=== PATIENT | male | born 1940 | race Caucasian/White ===

== ENCOUNTER 2017-02-13 17:50 | Emergency (ER) | payer MEDICARE, BC ==
[2017-02-13] MEDS ORDERED: Ondansetron 4 MG Tab.DIS PO ONE (18:21)
--- NOTE | 2017-02-13 18:26 | EDM.PDOC ---
ED HPI GENERAL MEDICAL PROBLEM - General Chief Complaint: Abdominal Pain Stated Complaint: NOT FEELING WELL Time Seen by Provider: 02/13/17 18:15 Source of Information: Reports: Patient, Old Records History Limitations: Reports: Other (poor historian) - History of Present Illness INITIAL COMMENTS - FREE TEXT/NARRATIVE: 76 yo male presents with a couple day hx of abdominal distention and mild discomfort. No fever. Mild nausea without vomiting. Normal BM's. No hx of abdominal surgery or liver dz. Does have a hx of a "stomach infection" tx'd with pills. Appetite is reduced. Denies current alcohol use. Onset: Gradual, Other Onset Date: 02/11/17 Duration: Day(s): Location: Reports: Abdomen Quality: Reports: Ache Severity: Mild Improves with: Reports: None Worsens with: Reports: None Context: Reports: Other (unknown) Associated Symptoms: Reports: Loss of Appetite, Nausea/Vomiting (no vomiting). Denies: Chest Pain, Fever/Chills, Rash Treatments ALGOLOGIST: Reports: Other (see below) (none) Abdominal Pain Score (Numeric/FACES): 2 - Related Data Allergies Allergy/AdvReac Type Severity Reaction Status Date / Time Penicillins Allergy Rash Verified 01/11/14 12:52 Home Meds: Home Meds Aspirin 81 mg PO DAILY 01/11/14 [History] atorvaSTATin [Lipitor] 40 mg PO BEDTIME 01/11/14 [History] glipiZIDE [Glipizide ER] 10 mg PO DAILY 01/11/14 [History] metFORMIN [Glucophage] 1,000 mg PO BID 01/11/14 [History] Liraglutide [Victoza] 1.2 mg SQ BEDTIME 01/13/14 [History] amLODIPine [Norvasc] 10 mg PO DAILY 01/13/14 [History] Lisinopril 20 mg PO DAILY 05/10/14 [History] Nitroglycerin 0.4 mg SL DAILY PRN #40 tab.subl 12/28/14 [Rx] traMADol [Ultram] 50 mg PO Q6H #20 tab 12/28/14 [Rx] Clopidogrel [Plavix] 75 mg PO DAILY 04/30/15 [History] Tamsulosin HCl [Flomax] 0.4 mg PO DAILY #30 cap.er.24h 06/10/15 [Rx] Famotidine 20 mg PO DAILY #15 tablet 02/13/17 [Rx] Ondansetron [Zofran ODT] 4 mg PO Q6H PRN #10 tab.dis 02/13/17 [Rx] Past Medical History Cardiovascular History: Reports: High Cholesterol, Hypertension Other Musculoskeletal History: Rib fx 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 Denies: Fever, Diaphoresis Respiratory: Reports: No Symptoms Cardiovascular: Reports: No Symptoms Endocrine: Reports: No Symptoms GI/Abdominal: Reports: Abdominal Pain, Decreased Appetite, Distension, Nausea. Denies: Black Stool, Bloody Stool, Constipation, Diarrhea, Flatus, Hematemesis, Hematochezia, Melena, Mucous in Stool, Stool Incontinence, Vomiting : Reports: No Symptoms Musculoskeletal: Reports: No Symptoms Skin: Reports: No Symptoms Neurological: Reports: No Symptoms ED EXAM, GI/ABD - Physical Exam Exam: See Below Exam Limited By: No Limitations General Appearance: Alert, WD/WN, No Apparent Distress Eyes: Bilateral: Normal Appearance Ears: Normal External Exam, Normal Canal, Hearing Grossly Normal Nose: Normal Inspection, Normal Mucosa, No Blood Throat/Mouth: Normal Inspection, Normal Lips, Normal Teeth, Normal Oropharynx, Normal Voice, No Airway Compromise Head: Atraumatic, Normocephalic Neck: Normal Inspection, Supple, Non-Tender Respiratory/Chest: No Respiratory Distress, Lungs Clear, Normal Breath Sounds, No Accessory Muscle Use Cardiovascular: Regular Rate, Rhythm GI/Abdominal: Normal Bowel Sounds, Soft, Non-Tender, Tenderness (mild, diffuse....worse in epigastrium), Distention (? new vs. chronic, no dullness to percussion to suggest distention if from air. ). No: Hypoactive Bowel Sounds, Hyperactive Bowel Sounds, McBurney's Sign, Beckwith's Sign (Male) Exam: No Hernia Extremities: Normal Inspection, Normal Range of Motion, Non-Tender Neurological: Alert, Oriented, CN II-XII Intact, Normal Cognition, No Motor/ Sensory Deficits Psychiatric: Normal Affect, Normal Mood Skin Exam: Warm, Dry, Intact, Normal Color, No Rash Lymphatic: No Adenopathy Course - Vital Signs Text/Narrative:: Zofran ODT 4 mg SL, lactated ringers 1000 ml IV, famotidine 20 mg po Single view abdominal [id number] for increased stool or abnormal gas pattern. Last Recorded V/S: Last Vital Signs Temp 36.8 C 02/13/17 18:07 Pulse 70 02/13/17 19:15 Resp 16 02/13/17 19:15 BP 155/78 H 02/13/17 19:15 Pulse Ox 98 02/13/17 19:15 - Orders/Labs/Meds Orders: Active Orders 24 hr Category Date Time Status Abdomen 1V Flat [CR] Stat Exams 02/13/17 18:22 Taken Labs: Laboratory Tests 02/13/17 02/13/17 Range/Units 18:25 18:25 WBC 5.8 (4.5-12.0) X10-3/uL RBC 4.92 (4.30-5.75) x10(6)uL Hgb 14.2 (11.5-15.5) g/dL Hct 43.2 (30.0-51.3) % MCV 87.8 (80-96) fL MCH 28.8 (27.7-33.6) pg MCHC 32.8 (32.2-35.4) g/dL RDW 12.5 (11.5-15.5) % Plt Count 163 (125-369) X10(3)uL Sodium 140 (135-145) mmol/L Potassium 4.2 (3.5-5.3) mmol/L Chloride 105 (100-110) mmol/L Carbon Dioxide 27 (23-29) mmol/L BUN 29 H (8-23) mg/dL Creatinine 1.2 (0.6-1.3) mg/dL Est Cr Clr Drug Dosing 50.49 mL/min Estimated GFR (MDRD) 59 L (>60) BUN/Creatinine Ratio 24.2 H (9-20) Glucose 164 H (80-116) mg/dL Calcium 9.3 (8.6-10.2) mg/dL Total Bilirubin 0.6 (0.1-1.3) mg/dL AST 27 D (5-27) IU/L ALT 34 H D (14-26) IU/L Alkaline Phosphatase 101 (56-112) IU/L Total Protein 7.7 (6.0-8.0) g/dL Albumin 4.1 (3.2-4.6) g/dL Globulin 3.6 g/dL Albumin/Globulin Ratio 1.1 Amylase 163 H (28-100) U/L Meds: Medications Discontinued Medications Generic Name Dose Route Start Last Admin Trade Name Freq PRN Reason Stop Dose Admin Famotidine 20 mg 02/13/17 19:02 02/13/17 19:12 Pepcid PO 02/13/17 19:03 20 mg ONETIME ONE Administration Lactated Ringer's 1,000 mls @ 1,000 mls/hr 02/13/17 18:52 02/13/17 19:12 Ringers, Lactated IV 02/13/17 19:51 1,000 mls/hr BOLUS ONE Administration Ondansetron HCl 4 mg 02/13/17 18:21 02/13/17 18:49 Zofran Odt PO 02/13/17 18:22 4 mg ONETIME ONE Administration Simethicone 160 mg 02/13/17 18:50 02/13/17 20:22 Simethicone PO 02/13/17 18:51 160 mg NOW STA Administration Simethicone Confirm 02/13/17 20:15 02/13/17 20:25 Simethicone Administered 02/13/17 20:16 Not Given Dose 160 mg .ROUTE .STK-MED ONE Departure - Departure Time of Disposition: 20:37 Disposition: Home, Self-Care 01 Condition: Fair Clinical Impression: Elevated amylase Gastritis Qualifiers: Gastritis type: unspecified gastritis Chronicity: acute Gastritis bleeding: without bleeding Qualified Code(s): K29.00 - Acute gastritis without bleeding - Discharge Information Prescriptions: Famotidine 20 mg PO DAILY #15 tablet Ondansetron [Zofran ODT] 4 mg PO Q6H PRN #10 tab.dis PRN Reason: Nausea Referrals: Sahil Wade MD [Primary Care Provider] - Forms: ED Department Discharge Care Plan Goals: Take famotidine every evening. Take Zofran every 6 hrs as needed for nausea. Take acetaminophen as directed on the bottle for pain relief as needed. Clear liquid diet today and tomorrow. Recheck in the clinic tomorrow, return to the ER if unable to get into the clinic tomorrow. Return a stool specimen tomorrow for testing. Avoid carbonated beverages, ibuprofen, or Aleve. - My Orders Last 24 Hours: My Active Orders 02/13/17 18:22 Abdomen 1V Flat [CR] Stat - Assessment/Plan Last 24 Hours: My Active Orders 02/13/17 18:22 Abdomen 1V Flat [CR] Stat
[2017-02-13] MEDS ORDERED: Simethicone 80 MG Tab.Chew PO STA (18:50)
[2017-02-13] MEDS ORDERED: Lactated Ringers 1,000 ML IV ONE (18:52)
[2017-02-13] MEDS ORDERED: Famotidine 20 MG Tab PO ONE (19:02)
[2017-02-13] MEDS ORDERED: Simethicone 80 MG Tab.Chew ONE (20:15)
[2017-02-13 20:36] VITALS: BP 167/68
--- NOTE | 2017-02-14 11:54 | CR ---
INDICATION: Abdominal pain, distention. ABDOMEN: Two supine views of the abdomen were obtained 02/13/2017 and revealed a mass in the pelvis compatible with a moderately distended urinary bladder. Dextroconvex scoliosis of the lumbar spine is noted of mild to moderate degree, with hypertrophic degenerative changes and disk disease in the lumbar spine. The pattern of gas and feces is grossly nonspecific. No upright view is obtained. No definite organomegaly or mass lesions were seen. No distention of the bowel is seen. IMPRESSION: Nonspecific abdomen. MTDD
== END 2017-02-13 20:45 | disposition home or self-care (01) ==
LOC: FB.ED 17:50
DX: K29.00 Acute gastritis without bleeding (principal); R79.89 Other specified abnormal findings of blood chemistry; E78.00 Pure hypercholesterolemia, unspecified; I10 Essential (primary) hypertension; Z88.0 Allergy status to penicillin; Z79.82 Long term (current) use of aspirin; Z87.891 Personal history of nicotine dependence
CPT/HCPCS: 36415; 74000; 80053; 82150; 85027; 96365; 99283; A9270; J7120

== ENCOUNTER 2021-05-17 17:25 | Emergency (ER) | payer MEDICARE, BC ==
[2021-05-17] MEDS ORDERED: Sodium Chloride 0.9% 10 ML Syringe FLUSH PRN (17:31)
[2021-05-17] MEDS ORDERED: Nitroglycerin 0.4 MG Tab.SL SL PRN (17:33)
[2021-05-17] MEDS ORDERED: Aspirin 81 MG Tab.Chew PO ONE (17:33)
[2021-05-17 18:22] VITALS: PULSE 78
--- NOTE | 2021-05-17 18:26 | EDM.PDOC ---
ED HPI GENERAL MEDICAL PROBLEM - General Stated Complaint: CHEST PAIN Time Seen by Provider: 05/17/21 17:40 Source of Information: Reports: Patient, Family History Limitations: Reports: No Limitations - History of Present Illness INITIAL COMMENTS - FREE TEXT/NARRATIVE: Patient presented to the ED because of chest pain which started tonight. The pain is sharp, 4/10, over the sternal area. There ir no nausea, vomiting, dyspnea. He has a h/o CAD with stent placement in 2014. Chest Pain Score (Numeric/FACES): 7 - Related Data Allergies Allergy/AdvReac Type Severity Reaction Status Date / Time Penicillins Allergy Rash Verified 01/11/14 12:52 Home Meds: Home Meds Aspirin 81 mg PO DAILY 01/11/14 [History] atorvaSTATin [Lipitor] 40 mg PO BEDTIME 01/11/14 [History] glipiZIDE [Glipizide ER] 10 mg PO DAILY 01/11/14 [History] metFORMIN [Glucophage] 1,000 mg PO BID 01/11/14 [History] Liraglutide [Victoza] 1.2 mg SQ BEDTIME 01/13/14 [History] amLODIPine [Norvasc] 10 mg PO DAILY 01/13/14 [History] Lisinopril 20 mg PO DAILY 05/10/14 [History] Nitroglycerin 0.4 mg SL DAILY PRN #40 tab.subl 12/28/14 [Rx] traMADol [Ultram] 50 mg PO Q6H #20 tab 12/28/14 [Rx] Clopidogrel [Plavix] 75 mg PO DAILY 04/30/15 [History] Tamsulosin HCl [Flomax] 0.4 mg PO DAILY #30 cap.er.24h 06/10/15 [Rx] Famotidine 20 mg PO DAILY #15 tablet 02/13/17 [Rx] Ondansetron [Zofran ODT] 4 mg PO Q6H PRN #10 tab.dis 02/13/17 [Rx] Past Medical History Cardiovascular History: Reports: High Cholesterol, Hypertension Other Musculoskeletal History: Rib fx 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 Social & Family History - Caffeine Use Caffeine Use: Reports: Coffee - Living Situation & Occupation Occupation: Employed ED ROS GENERAL - Review of Systems Review Of Systems: See Below Constitutional: Reports: No Symptoms HEENT: Reports: No Symptoms Respiratory: Reports: No Symptoms Cardiovascular: Reports: Chest Pain Endocrine: Reports: No Symptoms GI/Abdominal: Reports: No Symptoms : Reports: No Symptoms Musculoskeletal: Reports: No Symptoms Skin: Reports: No Symptoms Neurological: Reports: No Symptoms Psychiatric: Reports: No Symptoms ED EXAM, GENERAL - Physical Exam Exam: See Below Exam Limited By: No Limitations General Appearance: Alert, No Apparent Distress Ears: Normal External Exam, Normal Canal, Hearing Grossly Normal Nose: Normal Inspection, Normal Mucosa, No Blood Throat/Mouth: Normal Inspection, Normal Lips, Normal Teeth, Normal Gums, Normal Oropharynx, Normal Voice Head: Atraumatic, Normocephalic Neck: Normal Inspection, Supple, Non-Tender Respiratory/Chest: No Respiratory Distress, Lungs Clear, No Accessory Muscle Use, Chest Non-Tender Cardiovascular: Normal Peripheral Pulses, Regular Rate, Rhythm, No Edema, No Gallop, No JVD, No Murmur, No Rub GI/Abdominal: Normal Bowel Sounds, Soft, Non-Tender, No Organomegaly, No Distention, No Abnormal Bruit, No Mass Back Exam: Normal Inspection, Full Range of Motion Extremities: Normal Inspection, Normal Range of Motion, Non-Tender, No Pedal Edema, Normal Capillary Refill Neurological: Alert, Oriented, CN II-XII Intact, Normal Cognition, Normal Gait, Normal Reflexes, No Motor/Sensory Deficits #1 Interpretation EKG Date: 05/17/21 Time: 17:30 Rhythm: NSR Rate (Beats/Min): 77 P-Wave: Present QRS: Normal ST-T: Normal QT: Normal MO/PQ Interval: 257-prolonged Comparison: No Change EKG Interpretation Comments: 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 Last Recorded V/S: Last Vital Signs Temp 36.5 C 05/17/21 17:30 Pulse 78 05/17/21 17:30 Resp 22 H 05/17/21 17:30 BP 185/98 H 05/17/21 17:55 Pulse Ox 97 05/17/21 17:30 - Orders/Labs/Meds Orders: Active Orders 24 hr Category Date Time Status Saline Lock Insert [OM.PC] Routine Oth 05/17/21 17:31 Ordered Labs: Laboratory Tests 05/17/21 05/17/21 05/17/21 Range/Units 17:50 17:50 17:50 WBC 5.3 (3.2-10.1) x10-3/uL RBC 5.03 (3.90-5.90) x10(6)uL Hgb 14.7 (12.9-17.7) g/dL Hct 44.7 (38.3-50.1) % MCV 88.7 (80.8-98.7) fL MCH 29.3 (27.0-33.3) pg MCHC 33.0 (28.7-35.3) g/dL RDW 13.9 (12.4-15.0) % Plt Count 185 (117-477) x10(3)uL MPV 9.8 (6.7-11.0) fL Neut % (Auto) 52.6 (40.3-71.8) % Lymph % (Auto) 30.1 (15.8-45.3) % Ripley % (Auto) 9.1 (5.5-15.2) % Eos % (Auto) 7.0 H (0.1-6.8) % Baso % (Auto) 1.2 (0.3-3.8) % Neut # (Auto) 2.8 (1.7-6.9) x10-3/uL Lymph # (Auto) 1.6 (0.5-4.5) x10-3/uL Ripley # (Auto) 0.5 (0.0-1.2) x10-3/uL Eos # (Auto) 0.4 (0.0-0.6) x10-3/uL Baso # (Auto) 0.1 (0.0-0.3) x10-3/uL Sodium 142 (135-145) mmol/L Potassium 4.6 (3.5-5.3) mmol/L Chloride 107 (100-110) mmol/L Carbon Dioxide 22 (21-32) mmol/L BUN 22 H (7-18) mg/dL Creatinine 1.3 (0.70-1.30) mg/dL Est Cr Clr Drug Dosing TNP Estimated GFR (MDRD) 53 L (>60) BUN/Creatinine Ratio 16.9 (9-20) Glucose 182 H (80-116) mg/dL Calcium 8.9 (8.6-10.2) mg/dL Total Bilirubin 0.5 (0.1-1.3) mg/dL AST 14 (5-25) IU/L ALT 25 (12-36) U/L Alkaline Phosphatase 103 (56-112) IU/L Troponin I 5.0 (4.0-60.3) pg/mL Total Protein 7.1 (6.0-8.0) g/dL Albumin 3.6 (3.2-4.6) g/dL Globulin 3.5 g/dL Albumin/Globulin Ratio 1.0 Meds: Medications Discontinued Medications Generic Name Dose Route Start Last Admin Trade Name Freq PRN Reason Stop Dose Admin Aspirin 324 mg 05/17/21 17:33 05/17/21 17:40 Aspirin 81 Mg Tab.Chew PO 05/17/21 17:34 324 mg ONETIME ONE Administration Nitroglycerin 0.4 mg 05/17/21 17:33 05/17/21 17:55 Nitroglycerin 0.4 Mg Tab.Sl SL 0.4 mg Q5M PRN Administration Chest Pain Sodium Chloride 10 ml 05/17/21 17:31 Sodium Chloride 0.9% 10 Ml Syringe FLUSH ASDIRECTED PRN Keep Vein Open Departure - Departure Time of Disposition: 18:25 Disposition: Home, Self-Care 01 Condition: Good Clinical Impression: Chest pain Instructions: Nonspecific Chest Pain, Adult Referrals: Sahil Wade MD [Primary Care Provider] - Forms: ED Department Discharge Additional Instructions: Please read discharged instructions on non-specific chest pain Use your Nitro as directed Return to the ED anytime if your chest pain reoccurs Call you feather boner(diabetes specialist) at [facility] for a follow up visit since it has been a while that you had a visit with your feather boner Sepsis Event Note (ED) - Evaluation Sepsis Screening Result: No Definite Risk - My Orders Last 24 Hours: My Active Orders 05/17/21 17:31 Saline Lock Insert [OM.PC] Routine - Assessment/Plan Last 24 Hours: My Active Orders 05/17/21 17:31 Saline Lock Insert [OM.PC] Routine
[2021-05-17 18:47] VITALS: BP 185/98
--- NOTE | 2021-05-17 19:44 | CR ---
INDICATION: Chest pain. CHEST, ONE VIEW: An AP upright portable view of the chest 05/17/21 was compared with 04/03/15. The heart is normal in size. The aorta is tortuous with minimal calcification in the arch. Overlying EKG leads are noted. An active infiltrate or effusion was not identified. IMPRESSION: No acute process. MTDD
== END 2021-05-17 18:35 | disposition home or self-care (01) ==
LOC: FB.ED 17:25
DX: R07.2 Precordial pain (principal); I25.10 Atherosclerotic heart disease of native coronary artery without angina pectoris; E78.00 Pure hypercholesterolemia, unspecified; I10 Essential (primary) hypertension; Z95.5 Presence of coronary angioplasty implant and graft; Z88.0 Allergy status to penicillin; Z79.82 Long term (current) use of aspirin; Z79.899 Other long term (current) drug therapy; Z79.02 Long term (current) use of antithrombotics/antiplatelets; Z79.84 Long term (current) use of oral hypoglycemic drugs
CPT/HCPCS: 36415; 71045; 80053; 84484; 85025; 93005; 99285; A9270

== ENCOUNTER 2022-11-02 04:05 | Emergency (ER) | payer MEDICARE, BC ==
[2022-11-02 06:05] VITALS: BP 143/79; PULSE 89
== END 2022-11-02 07:14 | disposition home or self-care (01) ==
LOC: FB.ED 04:05
DX: K59.00 Constipation, unspecified (principal); R33.9 Retention of urine, unspecified; J44.9 Chronic obstructive pulmonary disease, unspecified; E11.9 Type 2 diabetes mellitus without complications; I25.119 Atherosclerotic heart disease of native coronary artery with unspecified angina pectoris; I10 Essential (primary) hypertension; Z88.0 Allergy status to penicillin; Z79.82 Long term (current) use of aspirin; Z79.899 Other long term (current) drug therapy
CPT/HCPCS: 51702; 74018; 99283-25

== ENCOUNTER 2023-09-20 09:19 | Emergency (ER) | payer MEDICARE, BC ==
[2023-09-20] MEDS: Sodium Chloride 0.9% 1,000 ML IV SCH (09:29)
[2023-09-20] MEDS: Morphine 4 MG/ML VIAL IVPUSH ONE (09:29)
[2023-09-20] MEDS: Ondansetron 4 MG/2 ML SDV IVPUSH ONE (09:31)
[2023-09-20 09:40] LABS: EOSINOPHILS ABSOLUTE AUTO 0.3 x10-3/uL (0.0-0.6); EOSINOPHILS PERCENT AUTO 6.6 % (0.1-6.8); HEMATOCRIT 41.4 % (38.3-50.1); HEMOGLOBIN 13.7 g/dL (12.9-17.7); LYMPHOCYTES PERCENT AUTO 24.1 % (15.8-45.3); MEAN CORPUSCULAR HEMOGLOBIN 29.4 pg (27.0-33.3); MEAN CORPUSCULAR HGB CONC 33.1 g/dL (28.7-35.3); MEAN PLATELET VOLUME 10.1 fL (6.7-11.0); MONOCYTES ABSOLUTE AUTO 0.3 x10-3/uL (0.0-1.2); MONOCYTES PERCENT AUTO 7.6 % (5.5-15.2); NEUTROPHILS ABSOLUTE AUTO 2.5 x10-3/uL (1.7-6.9); NEUTROPHILS PERCENT AUTO 60.7 % (40.3-71.8); PLATELET COUNT,PLT 129 x10(3)uL (117-477); RED BLOOD CELL COUNT 4.65 x10(6)uL (3.90-5.90); RED CELL DISTRIBUTION WIDTH 14.5 % (12.4-15.0); WHITE BLOOD CELL COUNT,WBC 4.1 x10-3/uL (3.2-10.1)
[2023-09-20 09:46] LABS: BLOOD UREA NITROGEN,BUN 29 mg/dL (7-18); BUN/CREATININE RATIO 22.3 (9-20); CALCIUM 8.9 mg/dL (8.6-10.2); CARBON DIOXIDE,CO2 21 mmol/L (21-32); CHLORIDE,CL 108 mmol/L (100-110); CREATININE 1.3 mg/dL (0.70-1.30); EST CRCL DRUG DOSING (CG) 38.77 mL/min; ESTIMATED GFR 55 mL/min (>60); GLUCOSE RANDOM 133 mg/dL (80-116); POTASSIUM,K 4.2 mmol/L (3.5-5.3); SODIUM,NA 142 mmol/L (135-145)
[2023-09-20 09:52] LABS: A/G RATIO 1.1; ALANINE AMINOTRANSFERASE,ALT 21 U/L (12-36); ALBUMIN 3.6 g/dL (3.2-4.6); ALKALINE PHOSPHATASE 140 IU/L (56-112); AMYLASE 123 U/L (25-115); ASPARTATE AMNIOTRANSFERASE,AST 13 IU/L (5-25); BILIRUBIN TOTAL 0.5 mg/dL (0.1-1.3)
[2023-09-20 11:24] VITALS: BP 176/75; PULSE 62
== END 2023-09-20 11:15 | disposition home or self-care (01) ==
LOC: FB.ED 09:19
DX: N20.0 Calculus of kidney (principal); I10 Essential (primary) hypertension; E78.00 Pure hypercholesterolemia, unspecified; I25.10 Atherosclerotic heart disease of native coronary artery without angina pectoris; J44.9 Chronic obstructive pulmonary disease, unspecified; E11.9 Type 2 diabetes mellitus without complications; M13.80 Other specified arthritis, unspecified site; Z95.5 Presence of coronary angioplasty implant and graft; Z79.82 Long term (current) use of aspirin; Z79.84 Long term (current) use of oral hypoglycemic drugs; Z79.899 Other long term (current) drug therapy
CPT/HCPCS: 36415; 74176; 80053; 82150; 83690; 85025; 96361; 96374; 96375; 99285-25; J2270; J2405; J7030

== ENCOUNTER 2024-11-02 15:43 | Emergency (ER) | payer BC, MEDICARE ==
[2024-11-02 15:56] LABS: BASOPHILS PERCENT AUTO 0.7 % (0.3-3.8); EOSINOPHILS ABSOLUTE AUTO 0.3 x10-3/uL (0.0-0.6); EOSINOPHILS PERCENT AUTO 3.7 % (0.1-6.8); HEMATOCRIT 42.9 % (38.3-50.1); HEMOGLOBIN 14.7 g/dL (12.9-17.7); LYMPHOCYTES ABSOLUTE AUTO 1.6 x10-3/uL (0.5-4.5); LYMPHOCYTES PERCENT AUTO 22.4 % (15.8-45.3); MEAN CORPUSCULAR HEMOGLOBIN 30.1 pg (27.0-33.3); MEAN CORPUSCULAR HGB CONC 34.3 g/dL (28.7-35.3); MEAN CORPUSCULAR VOLUME 87.7 fL (80.8-98.7); MEAN PLATELET VOLUME 10.4 fL (6.7-11.0); MONOCYTES ABSOLUTE AUTO 0.6 x10-3/uL (0.0-1.2); MONOCYTES PERCENT AUTO 8.2 % (5.5-15.2); NEUTROPHILS ABSOLUTE AUTO 4.6 x10-3/uL (1.7-6.9); PLATELET COUNT,PLT 166 x10(3)uL (117-477); RED BLOOD CELL COUNT 4.88 x10(6)uL (3.90-5.90); RED CELL DISTRIBUTION WIDTH 13.9 % (12.4-15.0); WHITE BLOOD CELL COUNT,WBC 7.1 x10-3/uL (3.2-10.1)
[2024-11-02 16:09] LABS: A/G RATIO 0.9; ALANINE AMINOTRANSFERASE,ALT 22 U/L (12-36); ALBUMIN 3.8 g/dL (3.2-4.6); ALKALINE PHOSPHATASE 120 IU/L (56-112); ASPARTATE AMNIOTRANSFERASE,AST 13 IU/L (5-25); BILIRUBIN TOTAL 0.5 mg/dL (0.1-1.3); BLOOD UREA NITROGEN,BUN 45 mg/dL (7-18); BUN/CREATININE RATIO 18.8 (9-20); CALCIUM 9.4 mg/dL (8.6-10.2); CARBON DIOXIDE,CO2 21 mmol/L (21-32); CHLORIDE,CL 99 mmol/L (100-110); ESTIMATED GFR 26 mL/min (>60); GLUCOSE RANDOM 263 mg/dL (80-116); POTASSIUM,K 4.8 mmol/L (3.5-5.3); PROTEIN TOTAL,TP 7.9 g/dL (6.0-8.0); SODIUM,NA 135 mmol/L (135-145)
[2024-11-02 16:10] LABS: CREATININE 2.4 mg/dL (0.70-1.30)
[2024-11-02 16:18] LABS: INR 0.88 (1.00-1.24); PROTHROMBIN TIME 9.3 sec (9.0-11.1); PTT,PARTIAL THROMBOPLSTIN TIME 25.6 SECONDS (24.4-33.2)
[2024-11-02 16:22] VITALS: PULSE 101
[2024-11-02] MEDS: Sodium Chloride 0.9% 1,000 ML IV ONE (16:29)
[2024-11-02 20:22] VITALS: BP 111/58
== END 2024-11-02 17:55 | disposition home or self-care (01) ==
LOC: FB.ED 15:43
DX: M62.81 Muscle weakness (generalized) (principal); E86.0 Dehydration; I25.10 Atherosclerotic heart disease of native coronary artery without angina pectoris; I10 Essential (primary) hypertension; E78.00 Pure hypercholesterolemia, unspecified; J44.89 Other specified chronic obstructive pulmonary disease; M19.90 Unspecified osteoarthritis, unspecified site; E11.9 Type 2 diabetes mellitus without complications; Z79.82 Long term (current) use of aspirin; Z79.84 Long term (current) use of oral hypoglycemic drugs; Z79.51 Long term (current) use of inhaled steroids; Z79.899 Other long term (current) drug therapy
CPT/HCPCS: 70450; 71045; 80053; 82947; 84484; 85025; 85610; 85730; 93005; 93010; 96360; 99283; 99285-25; J7030